=== PATIENT | male | born 1975 | race Two or more races ===

== ENCOUNTER 2017-08-21 09:52 | Outpatient (CLI) | payer OTHER | END 2017-08-21 10:02 | disposition home or self-care (01) | LOC: SONOGRAMA 09:52 | DX: E04.2 Nontoxic multinodular goiter (principal) ==

== ENCOUNTER 2018-07-30 09:15 | Outpatient (CLI) | payer OTHER | END 2018-07-30 09:17 | disposition home or self-care (01) | LOC: SONOGRAMA 09:15 | DX: E04.2 Nontoxic multinodular goiter (principal) ==

== ENCOUNTER 2020-04-16 08:31 | Outpatient (CLI) | payer OTHER | END 2020-04-16 09:49 | disposition home or self-care (01) | LOC: SONOGRAMA 08:31 | PROVIDERS: ATTEND Pathology Anatomic Pathology & Clinical Pathology | DX: E04.2 Nontoxic multinodular goiter (principal) ==

== ENCOUNTER 2024-02-01 16:28 | Outpatient (CLI) | payer OTHER | END 2024-02-01 16:31 | disposition home or self-care (01) | LOC: SONOGRAMA 16:28 | PROVIDERS: ATTEND Pathology Anatomic Pathology & Clinical Pathology | DX: D34 Benign neoplasm of thyroid gland (principal); E07.89 Other specified disorders of thyroid; E04.2 Nontoxic multinodular goiter ==